=== PATIENT | female | born 1955 | race African-American/Black ===

== ENCOUNTER 2020-03-18 12:03 | Emergency (ER) | payer MEDICAID, MEDICARE ==
[~2020-03-18] VITALS: Ht 154.9 cm; Wt 70.0 kg
[2020-03-18 12:10] VITALS: BP 156/86
== END 2020-03-18 14:40 | disposition left against medical advice (07) ==
LOC: ER 12:03
DX: Z53.21 Procedure and treatment not carried out due to patient leaving prior to being seen by health care provider (principal); I10 Essential (primary) hypertension; M32.9 Systemic lupus erythematosus, unspecified; Z86.73 Personal history of transient ischemic attack (TIA), and cerebral infarction without residual deficits
CPT/HCPCS: 93005

== ENCOUNTER 2020-07-11 20:21 | Emergency (ER) | payer MEDICARE ==
[~2020-07-11] VITALS: Ht 154.9 cm; Wt 61.0 kg
[2020-07-11] MEDS ORDERED: KETOROLAC 60MG/2ML VIAL IM ONE (21:15)
[2020-07-11] MEDS ORDERED: HYDR-4346 MT (22:11)
[2020-07-11 22:15] VITALS: BP 102/74
== END 2020-07-11 22:41 | disposition home or self-care (01) ==
LOC: ER 20:21
DX: M79.605 Pain in left leg (principal); M19.90 Unspecified osteoarthritis, unspecified site; I10 Essential (primary) hypertension; Z86.73 Personal history of transient ischemic attack (TIA), and cerebral infarction without residual deficits; Z98.890 Other specified postprocedural states
CPT/HCPCS: 96372; 99283; J1885

== ENCOUNTER → 2021-09-09 | Outpatient (CLI) | payer MEDICARE, OTHER ==
[~2021-09-09] MED LIST: HYDR-4346 MT
[2021-09-09 12:29] LABS: CHLORIDE 111 mEq/L (98-107)
== END | disposition home or self-care (01) ==
LOC: LAB 11:45
PROVIDERS: ATTEND Psychiatry & Neurology Neurology
DX: M79.609 Pain in unspecified limb (principal)
CPT/HCPCS: 36415; 80053

== ENCOUNTER → 2022-02-16 | Outpatient (CLI) | payer MEDICARE, OTHER ==
[2022-02-18 09:10] LABS: ANTI-NUCLEAR ANTIBODIES DIRECT Positive (Negative)
[2022-02-19 13:06] LABS: ANTI-MYELOPEROXIDASE AB < 0.2 units (0.0-0.9); ANTI-PROTEINASE 3 ABS < 0.2 units (0.0-0.9)
[2022-02-21 13:08] LABS: ATYPICAL P-ANCA <1:20 titer (Neg:<1:20); CYTOPLASMIC C-ANCA <1:20 titer (Neg:<1:20); PERINUCLEAR P-ANCA <1:20 titer (Neg:<1:20)
== END | disposition home or self-care (01) ==
LOC: LAB 10:00
PROVIDERS: ATTEND Specialist
DX: M32.9 Systemic lupus erythematosus, unspecified (principal)
CPT/HCPCS: 83520; 86038; 86160; 86162; 86256

== ENCOUNTER → 2023-03-30 | Outpatient (CLI) | payer MEDICARE, OTHER | END | disposition home or self-care (01) | LOC: NM 09:40 | PROVIDERS: ATTEND Internal Medicine | DX: E04.8 Other specified nontoxic goiter (principal) | CPT/HCPCS: 78014; A9516 ==

== ENCOUNTER 2024-03-15 16:09 | Inpatient (IN) | payer MEDICARE, MEDICAID ==
[~2024-03-15] VITALS: Ht 165.1 cm; Wt 50.8 kg
[~2024-03-15 16:09] MED LIST changes: +AMIN30LI2 PO; +AMLO5TAB88 MT; +ASCO500C18 MT; +ASPI-1406 MT; +ATOR40TA70 MT; +CARV12.545 MT; +CLON0.1T PO; +COLL30OI TP; +DOCU-150 MT; +FAMO20TA8 MT; +FURO-151 MT; -HYDR-4346 MT; +HYDR50TA40 MT; +LACT10SO81 MT; +MAG355OR21 MT; +MELA1TAB28 MT; +TOPUD PO; +ZINC113C10 TP
[2024-03-15] MEDS: CEFTRIAXONE 1GM/50ML 50 ML IV ONE (17:00)
[2024-03-15 17:14] LABS: HEMATOCRIT. 22.4 % (36.0-48.0); HEMOGLOBIN. 7.4 g/dL (12.0-16.0); MEAN CORPUSCULAR HEMOGLOBIN 30.9 pg (28.0-32.0); MEAN CORPUSCULAR HGB CONC 33.1 g/dL (31.0-37.0); MEAN CORPUSCULAR VOLUME 93.5 fL (81.0-99.0); MEAN PLATELET VOLUME 8.6 fl (7.4-10.4); PLATELET 209 x1000/uL (130-400); RED CELL DISTRIBUTION WIDTH 16.6 % (11.6-14.6); WHITE BLOOD COUNT 4.3 x1000/uL (4.5-11.0)
[2024-03-15 17:22] LABS: DIFFERENTIAL COMMENT 1
[2024-03-15 17:23] LABS: PROTHROMBIN TIME 11.1 sec (9.6-11.0)
[2024-03-15 17:28] LABS: CHLORIDE 111 mEq/L (98-107); POTASSIUM 4.9 mEq/L (3.5-5.1); SODIUM 139 mEq/L (136-145)
[2024-03-15 17:29] LABS: CALCIUM 8.6 mg/dL (8.7-10.4); CARBON DIOXIDE 18 mEq/L (21-32)
[2024-03-15 17:34] LABS: CREATININE 3.3 mg/dL (0.6-1.0); GLUCOSE 108 mg/dL (70-105); UREA NITROGEN BLOOD 86 mg/dL (9-23)
[2024-03-15 17:40] LABS: TROPONIN I HIGH SENSITIVITY 47 ng/L (3.0-34)
[2024-03-15 19:00] LABS: ANISOCYTOSIS 1+; PLATELET ESTIMATE NORMAL
[2024-03-15] MEDS ORDERED: NITROGLYCERIN 0.4MG TABLET SL SL PRN (19:30)
[2024-03-15] MEDS ORDERED: ONDANSETRON HCL 4MG/2ML INJ IV PRN (19:30)
[2024-03-15] MEDS ORDERED: DOCUSATE SODIUM 100MG CAPSULE PO PRN (19:30)
[2024-03-15] MEDS ORDERED: ACETAMINOPHEN 325MG TABLET PO PRN (19:30)
[2024-03-15] MEDS ORDERED: GUAIFENESIN 200MG/10ML SUGAR FREE UDC PO PRN (19:30)
[2024-03-15] MEDS ORDERED: IPRATROPIUM/ALBUTEROL 0.5-3(2.5)MG/3ML NEB NEB PRN (19:30)
[2024-03-15] MEDS: EPOETIN ALFA-EPBX 10,000 UNIT/ML VIAL SUBCUT NR (21:00)
[2024-03-15] MEDS: CITRIC ACID/SODIUM CITRATE SOLN 30ML UDC PO SCH (21:00)
[2024-03-15] MEDS: FAMOTIDINE 20MG TABLET PO SCH (21:29)
[2024-03-16] VITALS (11 sets, daily range): BP systolic 105–167; BP diastolic 55–84; PULSE 66–96; RESP 17–20; TEMP 36.3918–37.00296; O2SAT 95–100
[2024-03-16] MEDS: CARVEDILOL 3.125 MG TABLET PO SCH (06:44)
[2024-03-16 07:54] LABS: CHLORIDE 114 mEq/L (98-107); POTASSIUM 4.8 mEq/L (3.5-5.1); SODIUM 143 mEq/L (136-145)
[2024-03-16 07:57] LABS: CALCIUM 8.4 mg/dL (8.7-10.4); CARBON DIOXIDE 17 mEq/L (21-32)
[2024-03-16 08:02] LABS: CREATININE 3.6 mg/dL (0.6-1.0); GLUCOSE 80 mg/dL (70-105); UREA NITROGEN BLOOD 95 mg/dL (9-23)
[2024-03-16 08:04] LABS: ALANINE AMINOTRANSFERASE 8 IU/L (10-49); ALBUMIN 3.3 g/dL (3.2-4.8); ASPARTATE AMINOTRANSFERASE 19 IU/L (<34); PHOSPHORUS 5.8 mg/dL (2.5-4.9)
[2024-03-16 08:05] LABS: BILIRUBIN TOTAL 0.2 mg/dL (0.1-1.0)
[2024-03-16 08:13] LABS: MEAN CORPUSCULAR HEMOGLOBIN 30.7 pg (28.0-32.0); MEAN CORPUSCULAR HGB CONC 33.2 g/dL (31.0-37.0); MEAN CORPUSCULAR VOLUME 92.5 fL (81.0-99.0); MEAN PLATELET VOLUME 9.2 fl (7.4-10.4); PLATELET 197 x1000/uL (130-400); RED BLOOD CELL COUNT 2.15 mill/uL (4.2-5.4); RED CELL DISTRIBUTION WIDTH 16.3 % (11.6-14.6); WHITE BLOOD COUNT 5.5 x1000/uL (4.5-11.0)
[2024-03-16 08:28] LABS: DIFFERENTIAL COMMENT 1
[2024-03-16 08:30] LABS: HEMATOCRIT. 19.9 % (36.0-48.0); HEMOGLOBIN. 6.6 g/dL (12.0-16.0)
[2024-03-16] MEDS ORDERED: FUROSEMIDE 20MG TABLET PO SCH (09:00)
[2024-03-16] MEDS: ACETAMINOPHEN 325MG TABLET PO PRN (09:00)
[2024-03-16] MEDS: FUROSEMIDE 40MG/4ML VIAL IVP SCH (10:22)
[2024-03-16] MEDS: ASPIRIN 81MG EC TABLET PO SCH (10:23)
[2024-03-16] MEDS: MAGNESIUM/ALUMINUM HYDROXIDE/SIMETHICONE 30ML UDC PO PRN (20:30)
[2024-03-16] MEDS: CLONIDINE 0.1MG TABLET PO PRN (20:30)
[2024-03-17 00:16] LABS: ANISOCYTOSIS 1+; PLATELET ESTIMATE NORMAL
[2024-03-17 00:33] VITALS: BP 148/60; PULSE 75; RESP 18; TEMP 36.50292; O2SAT 98
[2024-03-17 04:00] VITALS: BP 137/60; PULSE 82; RESP 18; TEMP 36.55848; O2SAT 99
[2024-03-17 08:00] VITALS: BP 155/56; PULSE 75; RESP 18; TEMP 36.72516; O2SAT 100
[2024-03-17 11:32] LABS: HEMATOCRIT 23.7 % (36.0-48.0)
[2024-03-17 11:33] LABS: HEMOGLOBIN 7.7 g/dL (12.0-16.0)
[2024-03-17 12:00] VITALS: BP 169/79; PULSE 71; RESP 20; TEMP 36.72516; O2SAT 98
[2024-03-17 16:00] VITALS: BP 173/68; PULSE 79; RESP 18; TEMP 36.50292; O2SAT 99
[2024-03-17 20:00] VITALS: BP 163/68; PULSE 65; RESP 18; TEMP 36.50292; O2SAT 96
[2024-03-18 04:00] VITALS: BP 169/73; PULSE 75; RESP 17; TEMP 36.3918; O2SAT 99
[2024-03-18 08:00] VITALS: BP 117/87; PULSE 74; RESP 18; TEMP 35.89176; O2SAT 98
[2024-03-18 12:00] VITALS: BP 180/82; PULSE 73; RESP 18; TEMP 36.33624; O2SAT 96
[2024-03-18 12:36] LABS: CLARITY URINE CLEAR (CLEAR); COLOR URINE YELLOW (YELLOW); GLUCOSE URINE NEGATIVE (NEGATIVE); KETONES URINE NEGATIVE (NEGATIVE); LEUKOCYTE ESTERASE URINE 2+ (NEGATIVE); NITRITE URINE NEGATIVE (NEGATIVE); OCCULT BLOOD URINE NEGATIVE (NEGATIVE); PROTEIN URINE 2+ (NEGATIVE); UROBILINOGEN URINE 0.2 E.U./dL (0.2-1.0)
[2024-03-18 13:36] LABS: BACTERIA URINE TRACE; RBC URINE 0-2 /hpf (0-2); SQUAMOUS EPITHELIAL CELL URINE 1+ /lpf (RARE/1+); WBC URINE 15-25 /hpf (0-2); YEAST URINE NONE SEEN
[2024-03-18 16:00] VITALS: BP 174/64; PULSE 82; RESP 18; TEMP 37.00296; O2SAT 93
[2024-03-18] MEDS: MEROPENEM 1G/100ML 100 ML IV SCH (18:44)
[2024-03-18 20:00] VITALS: BP 106/67; PULSE 80; RESP 20; TEMP 36.55848; O2SAT 99
[2024-03-18] MEDS: EPOETIN ALFA-EPBX 10,000 UNIT/ML VIAL SUBCUT NR (21:36)
[2024-03-19] VITALS: BP 118/70; PULSE 78; RESP 20; TEMP 36.114; O2SAT 98
[2024-03-19 04:00] VITALS: BP 148/66; PULSE 92; RESP 18; TEMP 36.55848; O2SAT 96
[2024-03-19 06:47] LABS: HEMATOCRIT. 25.5 % (36.0-48.0); HEMOGLOBIN. 8.2 g/dL (12.0-16.0); MEAN CORPUSCULAR HEMOGLOBIN 30.1 pg (28.0-32.0); MEAN CORPUSCULAR HGB CONC 32.2 g/dL (31.0-37.0); MEAN CORPUSCULAR VOLUME 93.4 fL (81.0-99.0); MEAN PLATELET VOLUME 9.6 fl (7.4-10.4); PLATELET 198 x1000/uL (130-400); RED BLOOD CELL COUNT 2.73 mill/uL (4.2-5.4); RED CELL DISTRIBUTION WIDTH 16.5 % (11.6-14.6); WHITE BLOOD COUNT 4.9 x1000/uL (4.5-11.0)
[2024-03-19 06:56] LABS: DIFFERENTIAL COMMENT 1
[2024-03-19 08:00] VITALS: BP 160/80; PULSE 75; RESP 18; TEMP 36.44736; O2SAT 98
[2024-03-19 12:00] VITALS: BP 180/83; PULSE 76; RESP 20; TEMP 36.78072; O2SAT 100
[2024-03-19 16:00] VITALS: BP 180/75; PULSE 77; RESP 22; TEMP 36.114; O2SAT 96
[2024-03-19 20:00] VITALS: BP 152/69; PULSE 70; RESP 20; TEMP 36.16956; O2SAT 96
[2024-03-19] MEDS: ZOLPIDEM TARTRATE 5MG TABLET PO PRN (21:59)
[2024-03-19 22:35] LABS: PLATELET ESTIMATE NORMAL
[2024-03-20] VITALS (7 sets, daily range): BP systolic 149–194; BP diastolic 60–87; PULSE 71–79; RESP 18–20; TEMP 36.50292–36.89184; O2SAT 82–99
== END 2024-03-20 17:08 | DRG 291 ==
LOC: ER 16:09 → EDBEDREQ 19:42 → EDBEDREQTM 19:42 → 5WST 23:18 → 8WST 03-16 15:39
PROVIDERS: ADMIT Internal Medicine; ATTEND Internal Medicine
PROC: 30233N1 Transfusion of Nonautologous Red Blood Cells into Peripheral Vein, Percutaneous Approach (ICD-10-PCS; principal; 2024-03-16)
DX: I13.0 Hypertensive heart and chronic kidney disease with heart failure and stage 1 through stage 4 chronic kidney disease, or unspecified chronic kidney disease (principal); N17.0 Acute kidney failure with tubular necrosis; D63.1 Anemia in chronic kidney disease; E11.22 Type 2 diabetes mellitus with diabetic chronic kidney disease; J44.9 Chronic obstructive pulmonary disease, unspecified; N18.9 Chronic kidney disease, unspecified; I50.9 Heart failure, unspecified; Z86.73 Personal history of transient ischemic attack (TIA), and cerebral infarction without residual deficits; Z79.899 Other long term (current) drug therapy
CPT/HCPCS: 36415; 71045; 80048; 80053; 81003; 83735; 83880; 84100; 84145; 84484; 85014; 85018; 85025; 86850; 86900; 86920; 87077; 87186; 93970; 99285; J0696; J0885; J1940; J2185; P9016

== ENCOUNTER 2024-04-15 05:04 | Inpatient (IN) | payer MEDICARE, MEDICAID ==
[~2024-04-15] VITALS: Ht 162.6 cm; Wt 61.7 kg
[2024-04-15] VITALS (16 sets, daily range): BP systolic 139–174; BP diastolic 61–91; PULSE 75–88; RESP 16–27; TEMP 36.50292–36.6696; O2SAT 94–100
[~2024-04-15 05:04] MED LIST changes: -DOCU-150 MT; +DOCU-422 MT
[2024-04-15 05:28] LABS: BG BASE EXCESS -8.5 mmol/L (-2.0-3.0); BG CARBOXYHEMOGLOBIN 0.4 % (0.5-1.5); BG DEOXYHEMOGLOBIN 0.3 % (0.0-5.0); BG FRACTION INSPIRED OXYGEN 100; BG HCO3 ACT 18.3 mmol/L (21.0-28.0); BG METHEMOGLOBIN 0.1 % (0.5-1.5); BG OXYGEN SATURATION 99.7 % (94.0-98.0); BG OXYHEMOGLOBIN 99.2 % (94.0-98.0); BG PCO2 43.1 mmHg (32.0-45.0); BG PH 7.246 (7.350-7.450); BG PO2 439.3 mmHg (83.0-108.0); BG SAMPLE SITE LEFT RADIAL; BG TOTAL HEMOGLOBIN 9.4 g/dL (12.0-16.0); BG VENT MODE MASK - BIPAP
[2024-04-15 05:28] LABS: BASOPHILS % 0.8 % (0.0-2.0); EOSINOPHILS % 2.5 % (0.0-5.0); HEMATOCRIT. 29.6 % (36.0-48.0); HEMOGLOBIN. 9.6 g/dL (12.0-16.0); LYMPHOCYTES % 53.4 % (20.0-50.0); MEAN CORPUSCULAR HEMOGLOBIN 30.7 pg (28.0-32.0); MEAN CORPUSCULAR HGB CONC 32.4 g/dL (31.0-37.0); MEAN CORPUSCULAR VOLUME 94.5 fL (81.0-99.0); MEAN PLATELET VOLUME 8.9 fl (7.4-10.4); MONOCYTES % 11.3 % (2.0-8.0); PLATELET 220 x1000/uL (130-400); RED BLOOD CELL COUNT 3.13 mill/uL (4.2-5.4); RED CELL DISTRIBUTION WIDTH 14.9 % (11.6-14.6); WHITE BLOOD COUNT 6.7 x1000/uL (4.5-11.0)
[2024-04-15] MEDS ORDERED: ENALAPRIL 2.5MG/2ML VIAL 2ML IV ONE (05:30)
[2024-04-15 05:37] LABS: PROTHROMBIN TIME 11.4 sec (9.6-11.0)
[2024-04-15] MEDS: PIPERACILLIN/TAZO 3.375G/50ML 50 ML IV ONE (05:40)
[2024-04-15] MEDS: SODIUM CHLORIDE 0.9% 250 ML IV ONE (05:41)
[2024-04-15 05:45] LABS: CARBON DIOXIDE 20 mEq/L (21-32); CHLORIDE 113 mEq/L (98-107); POTASSIUM 4.5 mEq/L (3.5-5.1); SODIUM 142 mEq/L (136-145)
[2024-04-15 05:51] LABS: CREATININE 2.8 mg/dL (0.6-1.0); GLUCOSE 156 mg/dL (70-105); UREA NITROGEN BLOOD 68 mg/dL (9-23)
[2024-04-15 05:53] LABS: ALANINE AMINOTRANSFERASE 16 IU/L (10-49); ALBUMIN 3.7 g/dL (3.2-4.8); ASPARTATE AMINOTRANSFERASE 31 IU/L (<34); BILIRUBIN TOTAL 0.2 mg/dL (0.1-1.0); PROTEIN TOTAL 7.9 g/dL (6.0-8.3)
[2024-04-15] MEDS: ENALAPRIL 1.25MG/ML VIAL 1ML IV NR (06:10)
[2024-04-15] MEDS: FUROSEMIDE 100MG/10ML VIAL IVP ONE (06:10)
[2024-04-15] MEDS: IPRATROPIUM BROMIDE (0.02%) 0.5MG/2.5ML NEB HHN STA (06:11)
[2024-04-15] MEDS: VANCOMYCIN 1G PREMIX 200 ML IV ONE (06:12)
[2024-04-15] MEDS: ALBUTEROL (0.083%) 2.5MG/3ML NEB HHN STA (06:13)
[2024-04-15 06:28] LABS: BILIRUBIN DIRECT < 0.1 mg/dL (<=3.0)
[2024-04-15 06:31] LABS: TROPONIN I HIGH SENSITIVITY 73 ng/L (3.0-34)
[2024-04-15 06:40] LABS: BG BASE EXCESS -8.6 mmol/L (-2.0-3.0); BG CARBOXYHEMOGLOBIN 0.4 % (0.5-1.5); BG DEOXYHEMOGLOBIN 0.5 % (0.0-5.0); BG FRACTION INSPIRED OXYGEN 50; BG HCO3 ACT 17.2 mmol/L (21.0-28.0); BG METHEMOGLOBIN 0.3 % (0.5-1.5); BG OXYGEN SATURATION 99.5 % (94.0-98.0); BG OXYHEMOGLOBIN 98.8 % (94.0-98.0); BG PCO2 36.7 mmHg (32.0-45.0); BG PH 7.289 (7.350-7.450); BG PO2 341.4 mmHg (83.0-108.0); BG SAMPLE SITE LEFT RADIAL; BG TOTAL HEMOGLOBIN 10.7 g/dL (12.0-16.0)
[2024-04-15] MEDS ORDERED: IPRATROPIUM/ALBUTEROL 0.5-3(2.5)MG/3ML NEB HHN PRN (07:30)
[2024-04-15] MEDS ORDERED: ACETAMINOPHEN 325MG TABLET PO PRN ×2 (07:30)
[2024-04-15] MEDS ORDERED: DOCUSATE SODIUM 100MG CAPSULE PO PRN (07:30)
[2024-04-15] MEDS ORDERED: ONDANSETRON HCL 4MG/2ML INJ IV PRN (07:30)
[2024-04-15] MEDS ORDERED: GUAIFENESIN 200MG/10ML SUGAR FREE UDC PO PRN (07:30)
[2024-04-15] MEDS: FUROSEMIDE 40MG/4ML VIAL IV SCH (09:19)
[2024-04-15] MEDS: ASPIRIN 81MG EC TABLET PO SCH (09:19)
[2024-04-15] MEDS: HYDRALAZINE HCL 50MG TABLET PO SCH (09:19)
[2024-04-15] MEDS: SODIUM CHLORIDE 0.9% 1,000 ML IV SCH (09:19)
[2024-04-15] MEDS: IPRATROPIUM/ALBUTEROL 0.5-3(2.5)MG/3ML NEB HHN SCH (09:33)
[2024-04-15 14:40] LABS: IRON 61 ug/dL (50-170)
[2024-04-15 14:43] LABS: CREATINE KINASE 93 IU/L (34-145); TOTAL IRON BINDING CAPACITY 231 ug/dl (250-425)
[2024-04-15 14:46] LABS: FERRITIN 243 ng/mL (10-291); FOLIC ACID (FOLATE) SERUM 14.65 ng/mL (>5.38); VITAMIN B12 SERUM 780 pg/mL (211-911)
[2024-04-15] MEDS: MEROPENEM 500MG/50ML IV SCH (15:35)
[2024-04-15] MEDS ORDERED: PIPERACILLIN/TAZO 3.375G/50ML 50 ML IV SCH (18:00)
[2024-04-15] MEDS: CLONIDINE 0.1MG TABLET PO PRN (19:02)
[2024-04-15] MEDS: ATORVASTATIN CALCIUM 40MG TABLET PO SCH (20:44)
[2024-04-16] VITALS (18 sets, daily range): BP systolic 123–168; BP diastolic 65–78; PULSE 71–99; RESP 12–22; TEMP 36.22512–36.78072; O2SAT 95–100
[2024-04-16 09:27] LABS: HEMATOCRIT. 28.3 % (36.0-48.0); HEMOGLOBIN. 9.2 g/dL (12.0-16.0); MEAN CORPUSCULAR HEMOGLOBIN 30.6 pg (28.0-32.0); MEAN CORPUSCULAR HGB CONC 32.6 g/dL (31.0-37.0); MEAN CORPUSCULAR VOLUME 93.8 fL (81.0-99.0); MEAN PLATELET VOLUME 9.7 fl (7.4-10.4); PLATELET 172 x1000/uL (130-400); RED BLOOD CELL COUNT 3.02 mill/uL (4.2-5.4); RED CELL DISTRIBUTION WIDTH 14.4 % (11.6-14.6); WHITE BLOOD COUNT 5.4 x1000/uL (4.5-11.0)
[2024-04-16 09:29] LABS: POTASSIUM 4.8 mEq/L (3.5-5.1)
[2024-04-16 09:30] LABS: CALCIUM 8.7 mg/dL (8.7-10.4)
[2024-04-16 09:32] LABS: DIFFERENTIAL COMMENT 1
[2024-04-16 09:35] LABS: CREATININE 3.2 mg/dL (0.6-1.0)
[2024-04-16 09:39] LABS: T4 FREE 1.07 ng/dL (0.89-1.76); THYROID STIMULATING HORMONE 1.14 uIU/mL (0.55-4.78)
[2024-04-16 10:14] LABS: TROPONIN I HIGH SENSITIVITY 61 ng/L (3.0-34)
[2024-04-16 14:54] LABS: CLARITY URINE CLEAR (CLEAR); COLOR URINE YELLOW (YELLOW); GLUCOSE URINE NEGATIVE (NEGATIVE); KETONES URINE NEGATIVE (NEGATIVE); LEUKOCYTE ESTERASE URINE TRACE (NEGATIVE); NITRITE URINE NEGATIVE (NEGATIVE); OCCULT BLOOD URINE NEGATIVE (NEGATIVE); PH URINE 5.5 (4.5-8.0); PROTEIN URINE 3+ (NEGATIVE); SPECIFIC GRAVITY URINE 1.012 (1.005-1.030); UROBILINOGEN URINE 0.2 E.U./dL (0.2-1.0)
[2024-04-16 16:27] LABS: ANISOCYTOSIS 1+; PLATELET ESTIMATE NORMAL
[2024-04-16 17:40] LABS: BACTERIA URINE TRACE; RBC URINE 0-2 /hpf (0-2); SQUAMOUS EPITHELIAL CELL URINE 1+ /lpf (RARE/1+); WBC URINE 0-2 /hpf (0-2)
[2024-04-16] MEDS: SODIUM CHLORIDE 0.45% 1,000 ML IV SCH (18:14)
[2024-04-16] MEDS: VANCOMYCIN 750MG/150ML (BAXTER) IV SCH (18:14)
[2024-04-16] MEDS: DIPHENHYDRAMINE 25MG CAPSULE PO NR (21:34)
[2024-04-16] MEDS: DIPHENHYDRAMINE HCL/ZINC ACET 28 GM CREAM TOP NR (22:30)
[2024-04-17] VITALS (11 sets, daily range): BP systolic 124–164; BP diastolic 60–73; PULSE 74–99; RESP 13–26; TEMP 36.114–37.05852; O2SAT 94–100
[2024-04-17 05:21] LABS: HEMATOCRIT. 26.2 % (36.0-48.0); HEMOGLOBIN. 8.2 g/dL (12.0-16.0); MEAN CORPUSCULAR HEMOGLOBIN 29.4 pg (28.0-32.0); MEAN CORPUSCULAR HGB CONC 31.3 g/dL (31.0-37.0); MEAN CORPUSCULAR VOLUME 93.9 fL (81.0-99.0); MEAN PLATELET VOLUME 9.1 fl (7.4-10.4); PLATELET 165 x1000/uL (130-400); POTASSIUM 4.8 mEq/L (3.5-5.1); RED BLOOD CELL COUNT 2.79 mill/uL (4.2-5.4); RED CELL DISTRIBUTION WIDTH 14.9 % (11.6-14.6); WHITE BLOOD COUNT 5.3 x1000/uL (4.5-11.0)
[2024-04-17 05:22] LABS: CALCIUM 8.6 mg/dL (8.7-10.4)
[2024-04-17 05:27] LABS: CREATININE 3.2 mg/dL (0.6-1.0)
[2024-04-17 05:29] LABS: DIFFERENTIAL COMMENT 1
[2024-04-17] MEDS: ENOXAPARIN 30MG/0.3ML SYR SUBCUT SCH (09:00)
[2024-04-17] MEDS: SODIUM BICARBONATE 650MG TABLET PO SCH (14:02)
[2024-04-17 15:44] LABS: PLATELET ESTIMATE NORMAL
== END 2024-04-17 17:45 | DRG 871 ==
LOC: ER 05:04 → 5EST 06:23
PROVIDERS: ADMIT Hospitalist; ATTEND Hospitalist
PROC: 5A09357 Assistance with Respiratory Ventilation, Less than 24 Consecutive Hours, Continuous Positive Airway Pressure (ICD-10-PCS; principal; 2024-04-15)
DX: A41.9 Sepsis, unspecified organism (principal); I50.33 Acute on chronic diastolic (congestive) heart failure; J96.01 Acute respiratory failure with hypoxia; I13.0 Hypertensive heart and chronic kidney disease with heart failure and stage 1 through stage 4 chronic kidney disease, or unspecified chronic kidney disease; J44.1 Chronic obstructive pulmonary disease with (acute) exacerbation; N17.9 Acute kidney failure, unspecified; I69.354 Hemiplegia and hemiparesis following cerebral infarction affecting left non-dominant side; N39.0 Urinary tract infection, site not specified; Z20.822 Contact with and (suspected) exposure to COVID-19; K21.9 Gastro-esophageal reflux disease without esophagitis; E11.65 Type 2 diabetes mellitus with hyperglycemia; E11.22 Type 2 diabetes mellitus with diabetic chronic kidney disease; N18.30 Chronic kidney disease, stage 3 unspecified; E78.00 Pure hypercholesterolemia, unspecified; D64.9 Anemia, unspecified; M32.9 Systemic lupus erythematosus, unspecified; Z79.82 Long term (current) use of aspirin; Z87.891 Personal history of nicotine dependence; Z79.4 Long term (current) use of insulin; Z99.81 Dependence on supplemental oxygen; Z99.3 Dependence on wheelchair; Z86.19 Personal history of other infectious and parasitic diseases
CPT/HCPCS: 36415; 36600; 71045; 76770; 80048; 80061; 80076; 80202; 81003; 82375; 82550; 82607; 82728; 82746; 82805; 83036; 83540; 83550; 83605; 83880; 84145; 84439; 84443; 84484; 85025; 87426; 87804; 93005; 93306; 93970; 94640; 94660; 97110; 97162; 97166; 97530; 99291; A6261; C1893; J1650; J1940; J2185; J2543; J3370; J3490; J7050; Q0163

== ENCOUNTER 2024-06-07 20:48 | Inpatient (IN) | payer MEDICARE, MEDICAID ==
[~2024-06-07] VITALS: Ht 160 cm; Wt 57.2 kg
[~2024-06-07 20:48] MED LIST changes: -AMIN30LI2 PO; -CARV12.545 MT; -COLL30OI TP; -FURO-151 MT; -LACT10SO81 MT; -MAG355OR21 MT; -MELA1TAB28 MT; -TOPUD PO
[2024-06-07] MEDS ORDERED: AZITHROMYCIN 500MG/250ML 250 ML IV SCH (21:00)
[2024-06-07 21:18] LABS: BASOPHILS % 1.3 % (0.0-2.0); EOSINOPHILS % 9.4 % (0.0-5.0); HEMATOCRIT. 23.3 % (36.0-48.0); HEMOGLOBIN. 7.7 g/dL (12.0-16.0); LYMPHOCYTES % 31.4 % (20.0-50.0); MEAN CORPUSCULAR HEMOGLOBIN 31.8 pg (28.0-32.0); MEAN CORPUSCULAR HGB CONC 33.1 g/dL (31.0-37.0); MEAN PLATELET VOLUME 9.7 fl (7.4-10.4); MONOCYTES % 12.5 % (2.0-8.0); NEUTROPHILS % 45.4 % (40.0-76.0); PLATELET 305 x1000/uL (130-400); RED BLOOD CELL COUNT 2.43 mill/uL (4.2-5.4); RED CELL DISTRIBUTION WIDTH 15.2 % (11.6-14.6); WHITE BLOOD COUNT 7.6 x1000/uL (4.5-11.0)
[2024-06-07 21:26] LABS: CHLORIDE 113 mEq/L (98-107); SODIUM 141 mEq/L (136-145)
[2024-06-07 21:27] LABS: CALCIUM 8.6 mg/dL (8.7-10.4); CARBON DIOXIDE 19 mEq/L (21-32)
[2024-06-07 21:32] LABS: CREATININE 4.1 mg/dL (0.6-1.0); GLUCOSE 153 mg/dL (70-105); UREA NITROGEN BLOOD 85 mg/dL (9-23)
[2024-06-07 21:33] LABS: DIFFERENTIAL COMMENT 1
[2024-06-07] MEDS: METHYLPREDNISOLONE SOD SUCC 125MG/2ML (ACT-O-VIAL) IV STA (21:39)
[2024-06-07] MEDS: FUROSEMIDE 40MG/4ML VIAL IV ONE (21:39)
[2024-06-07] MEDS: ALBUTEROL (0.083%) 2.5MG/3ML NEB HHN STA (21:41)
[2024-06-07] MEDS: IPRATROPIUM BROMIDE (0.02%) 0.5MG/2.5ML NEB HHN STA (21:41)
[2024-06-07 21:56] LABS: POTASSIUM 6.2 mEq/L (3.5-5.1)
[2024-06-07 21:57] LABS: TROPONIN I HIGH SENSITIVITY 62 ng/L (3.0-34)
[2024-06-07] MEDS: AZITHROMYCIN 500MG/250ML 250 ML IV NR (22:22)
[2024-06-08] MEDS: CALCIUM CHLORIDE 1,000 MG in DEXT 5% WATER 100 ML IV ONE (00:59)
[2024-06-08] MEDS: INSULIN REGULAR (HUMULIN R) 1000UNITS/10ML VIAL IV ONE (01:00)
[2024-06-08] MEDS: DEXTROSE 50% WATER 50ML SYRINGE IV ONE (01:00)
[2024-06-08] MEDS ORDERED: MAGNESIUM/ALUMINUM HYDROXIDE/SIMETHICONE 30ML UDC PO PRN (02:00)
[2024-06-08] MEDS ORDERED: ONDANSETRON HCL 4MG/2ML INJ IV PRN (02:00)
[2024-06-08] MEDS ORDERED: DOCUSATE SODIUM 100MG CAPSULE PO PRN (02:00)
[2024-06-08] MEDS ORDERED: ACETAMINOPHEN 325MG TABLET PO PRN (02:00)
[2024-06-08] MEDS ORDERED: IPRATROPIUM/ALBUTEROL 0.5-3(2.5)MG/3ML NEB HHN PRN (02:00)
[2024-06-08 05:00] VITALS: BP 171/72; PULSE 84; RESP 17; TEMP 37.1964
[2024-06-08] MEDS: HYDRALAZINE 20MG/ML VIAL IV PRN (07:03)
[2024-06-08] MEDS: METHYLPREDNISOLONE SOD SUCC 125MG/2ML (ACT-O-VIAL) IV SCH (07:04)
[2024-06-08] MEDS: PANTOPRAZOLE SODIUM 40 MG/VIAL IV SCH (07:04)
[2024-06-08 08:00] VITALS: BP 196/81; PULSE 75; RESP 19; O2SAT 99
[2024-06-08] MEDS: FUROSEMIDE 40MG/4ML VIAL IVP NR (08:30)
[2024-06-08] MEDS: ASPIRIN 81MG TABLET PO SCH (08:59)
[2024-06-08] MEDS: AMLODIPINE 5MG TABLET PO SCH (09:00)
[2024-06-08 10:00] LABS: CHLORIDE 112 mEq/L (98-107); SODIUM 140 mEq/L (136-145)
[2024-06-08 10:03] LABS: CALCIUM 9.2 mg/dL (8.7-10.4); CARBON DIOXIDE 17 mEq/L (21-32)
[2024-06-08 10:05] LABS: CREATINE KINASE MB FRACTION 3.3 ng/mL (0.5-3.6)
[2024-06-08 10:08] LABS: CREATININE 4.2 mg/dL (0.6-1.0); GLUCOSE 219 mg/dL (70-105); UREA NITROGEN BLOOD 88 mg/dL (9-23)
[2024-06-08 10:09] LABS: ALANINE AMINOTRANSFERASE < 7 IU/L (10-49)
[2024-06-08 10:10] LABS: ALBUMIN 3.5 g/dL (3.2-4.8); ASPARTATE AMINOTRANSFERASE 28 IU/L (<34); BILIRUBIN TOTAL < 0.2 mg/dL (0.1-1.0); CREATINE KINASE 79 IU/L (34-145); PHOSPHORUS 4.6 mg/dL (2.5-4.9)
[2024-06-08 10:11] LABS: PROTEIN TOTAL 7.7 g/dL (6.0-8.3)
[2024-06-08 11:05] LABS: TROPONIN I HIGH SENSITIVITY 67 ng/L (3.0-34)
[2024-06-08 11:06] LABS: POTASSIUM 6.3 mEq/L (3.5-5.1)
[2024-06-08 12:00] VITALS: BP 156/63; PULSE 76; RESP 18; O2SAT 96
[2024-06-08] MEDS: SODIUM ZIRCONIUM CYCLOSILICATE 10GM/PACKET PO NR ×2 (13:42→20:00)
[2024-06-08] MEDS: METHYLPREDNISOLONE SOD SUCC 40MG/ML (ACT-O-VIAL) IV SCH (13:56)
[2024-06-08] MEDS: DEXTROSE 50% WATER 50ML SYRINGE IV NR (13:56)
[2024-06-08] MEDS: SODIUM BICARBONATE 8.4% 50MEQ/50ML SYR IV NR (13:57)
[2024-06-08] MEDS: INSULIN REGULAR (HUMULIN R) 1000UNITS/10ML VIAL IV NR (14:02)
[2024-06-08] MEDS: CALCIUM GLUCONATE 1GM PREMIX 50 ML IV NR (14:03)
[2024-06-08] MEDS ORDERED: SODIUM POLYSTYRENE SULFONATE 15 G/60 ML BOT PO ONE (14:30)
[2024-06-08] MEDS ORDERED: DEXTROSE 50% WATER 50ML SYRINGE IV ONE (14:30)
[2024-06-08] MEDS ORDERED: INSULIN REGULAR (HUMULIN R) 1000UNITS/10ML VIAL IV ONE (14:30)
[2024-06-08] MEDS ORDERED: CALCIUM CHLORIDE 1GM/10ML SYR IV ONE (14:30)
[2024-06-08] MEDS ORDERED: SODIUM BICARBONATE 8.4% 50MEQ/50ML SYR IV ONE (14:30)
[2024-06-08 14:58] VITALS: PULSE 77; RESP 18
[2024-06-08] MEDS: IPRATROPIUM/ALBUTEROL 0.5-3(2.5)MG/3ML NEB HHN SCH (14:58)
[2024-06-08] MEDS: LORAZEPAM 2MG/ML INJ IV PRN (15:38)
[2024-06-08 16:00] VITALS: BP 158/64; PULSE 87; RESP 14
[2024-06-08] MEDS: FUROSEMIDE 40MG/4ML VIAL IVP SCH (17:30)
[2024-06-08 19:08] LABS: IRON 83 ug/dL (50-170)
[2024-06-08 19:10] LABS: CREATINE KINASE MB FRACTION 2.9 ng/mL (0.5-3.6)
[2024-06-08 19:11] LABS: CREATINE KINASE 60 IU/L (34-145); TOTAL IRON BINDING CAPACITY 250 ug/dl (250-425)
[2024-06-08 19:21] LABS: FERRITIN 283 ng/mL (10-291); FOLIC ACID (FOLATE) SERUM > 20.00 ng/mL (>5.38); VITAMIN B12 SERUM 669 pg/mL (211-911)
[2024-06-08 19:41] LABS: TROPONIN I HIGH SENSITIVITY 74 ng/L (3.0-34)
[2024-06-08 20:00] VITALS: BP 146/76; PULSE 76; RESP 18; TEMP 36.6696
[2024-06-08] MEDS: GUAIFENESIN 200MG/10ML SUGAR FREE UDC PO PRN (20:14)
[2024-06-08] MEDS: ATORVASTATIN CALCIUM 40MG TABLET PO SCH (20:15)
[2024-06-08] MEDS: AZITHROMYCIN 500MG/250ML 250 ML IV SCH (20:15)
[2024-06-08 21:56] LABS: POTASSIUM 5.3 mEq/L (3.5-5.1)
[2024-06-08 22:07] LABS: CREATINE KINASE MB FRACTION 2.8 ng/mL (0.5-3.6)
[2024-06-09] VITALS (7 sets, daily range): BP systolic 134–172; BP diastolic 66–140; PULSE 66–91; RESP 11–20; TEMP 36.50292–36.6696; O2SAT 15–99
[2024-06-09 07:17] LABS: CHLORIDE 112 mEq/L (98-107); SODIUM 142 mEq/L (136-145)
[2024-06-09 07:18] LABS: CALCIUM 9.4 mg/dL (8.7-10.4); CARBON DIOXIDE 17 mEq/L (21-32)
[2024-06-09 07:20] LABS: BASOPHILS % 0.2 % (0.0-2.0); HEMATOCRIT. 23.3 % (36.0-48.0); HEMOGLOBIN. 7.5 g/dL (12.0-16.0); LYMPHOCYTES % 19.8 % (20.0-50.0); MEAN CORPUSCULAR HEMOGLOBIN 31.6 pg (28.0-32.0); MEAN CORPUSCULAR HGB CONC 32.2 g/dL (31.0-37.0); MEAN CORPUSCULAR VOLUME 98.1 fL (81.0-99.0); MEAN PLATELET VOLUME 9.2 fl (7.4-10.4); MONOCYTES % 9.1 % (2.0-8.0); NEUTROPHILS % 70.9 % (40.0-76.0); PLATELET 202 x1000/uL (130-400); RED BLOOD CELL COUNT 2.38 mill/uL (4.2-5.4); RED CELL DISTRIBUTION WIDTH 15.9 % (11.6-14.6); WHITE BLOOD COUNT 4.8 x1000/uL (4.5-11.0)
[2024-06-09 07:23] LABS: CREATININE 4.1 mg/dL (0.6-1.0); GLUCOSE 134 mg/dL (70-105); TRIGLYCERIDE 35 mg/dL (0-150); UREA NITROGEN BLOOD 94 mg/dL (9-23)
[2024-06-09 07:24] LABS: LDL CHOLESTEROL 33 mg/dL (5-100)
[2024-06-09 07:25] LABS: CHOLESTEROL 97 mg/dL (<200); HDL CHOLESTEROL 50 mg/dL (>65); PHOSPHORUS 5.1 mg/dL (2.5-4.9); THYROID STIMULATING HORMONE 0.95 uIU/mL (0.55-4.78)
[2024-06-09 07:26] LABS: T4 FREE 1.07 ng/dL (0.89-1.76)
[2024-06-09] MEDS: SODIUM BICARBONATE 650MG TABLET PO SCH (09:39)
[2024-06-09 11:34] LABS: POTASSIUM 4.6 mEq/L (3.5-5.1)
[2024-06-09] MEDS: ACETAMINOPHEN 325MG TABLET PO PRN (15:08)
[2024-06-09 16:19] LABS: POTASSIUM 4.7 mEq/L (3.5-5.1)
[2024-06-09 16:26] LABS: CREATINE KINASE MB FRACTION 3.2 ng/mL (0.5-3.6)
[2024-06-09] MEDS: AZITHROMYCIN 500 MG TABLET PO SCH (21:17)
[2024-06-09 23:55] LABS: POTASSIUM 4.8 mEq/L (3.5-5.1)
[2024-06-10] VITALS (19 sets, daily range): BP systolic 134–193; BP diastolic 62–87; PULSE 72–91; RESP 13–22; TEMP 36.72516–37.00296; O2SAT 91–100
[2024-06-10 00:04] LABS: CREATINE KINASE MB FRACTION 3.2 ng/mL (0.5-3.6)
[2024-06-10] MEDS: CLONIDINE 0.1MG TABLET PO PRN (09:09)
[2024-06-10 09:50] LABS: CHLORIDE 111 mEq/L (98-107); SODIUM 139 mEq/L (136-145)
[2024-06-10 09:51] LABS: CALCIUM 9.3 mg/dL (8.7-10.4); CARBON DIOXIDE 17 mEq/L (21-32)
[2024-06-10 09:56] LABS: GLUCOSE 145 mg/dL (70-105)
[2024-06-10 09:57] LABS: CREATINE KINASE MB FRACTION 3.8 ng/mL (0.5-3.6)
[2024-06-10 09:58] LABS: CREATINE KINASE 44 IU/L (34-145); PHOSPHORUS 4.9 mg/dL (2.5-4.9)
[2024-06-10 10:11] LABS: PROTHROMBIN TIME 10.7 sec (9.6-11.0)
[2024-06-10 10:17] LABS: BASOPHILS % 0.8 % (0.0-2.0); EOSINOPHILS % 0.3 % (0.0-5.0); HEMATOCRIT. 25.7 % (36.0-48.0); HEMOGLOBIN. 8.3 g/dL (12.0-16.0); LYMPHOCYTES % 11.9 % (20.0-50.0); MEAN CORPUSCULAR HEMOGLOBIN 30.6 pg (28.0-32.0); MEAN CORPUSCULAR HGB CONC 32.1 g/dL (31.0-37.0); MEAN CORPUSCULAR VOLUME 95.5 fL (81.0-99.0); RED CELL DISTRIBUTION WIDTH 15.7 % (11.6-14.6)
[2024-06-10 10:19] LABS: UREA NITROGEN BLOOD 101 mg/dL (9-23)
[2024-06-10 10:21] LABS: TROPONIN I HIGH SENSITIVITY 78 ng/L (3.0-34)
[2024-06-10 10:23] LABS: DIFFERENTIAL COMMENT 1
[2024-06-10] MEDS: LORAZEPAM 2MG/ML INJ IV NR (10:43)
[2024-06-10] MEDS ORDERED: LIDOCAINE HCL 1% 10 MG/ML 10ML VIAL ONE (10:45)
[2024-06-10 11:48] LABS: ADD RBC MORPHOLOGY YES; MEAN PLATELET VOLUME 10.1 fl (7.4-10.4)
[2024-06-10 11:49] LABS: ANISOCYTOSIS 1+; PLATELET ESTIMATE NORMAL
[2024-06-10 11:51] LABS: PLATELET 283 x1000/uL (130-400)
[2024-06-10 12:45] LABS: HEPATITIS B SURFACE ANTIGEN NEGATIVE (Negative)
[2024-06-10 13:05] LABS: HEPATITIS A AB IGM NEGATIVE (Negative)
[2024-06-10 13:06] LABS: HEPATITIS B CORE AB IGM NEGATIVE (Negative)
[2024-06-10 13:07] LABS: HEPATITIS C AB NON REACTIVE (Neg) (Negative)
[2024-06-10] MEDS: HYDRALAZINE HCL 50MG TABLET PO SCH (13:43)
[2024-06-11] VITALS (10 sets, daily range): BP systolic 129–173; BP diastolic 57–66; PULSE 71–89; RESP 9–18; TEMP 36.50292–37; O2SAT 95–100
[2024-06-11 08:08] LABS: CHLORIDE 105 mEq/L (98-107); SODIUM 138 mEq/L (136-145)
[2024-06-11 08:09] LABS: CARBON DIOXIDE 24 mEq/L (21-32)
[2024-06-11 08:14] LABS: CREATININE 3.1 mg/dL (0.6-1.0); GLUCOSE 156 mg/dL (70-105); UREA NITROGEN BLOOD 72 mg/dL (9-23)
[2024-06-11 08:16] LABS: PHOSPHORUS 4.8 mg/dL (2.5-4.9)
[2024-06-11 08:18] LABS: BASOPHILS % 0.1 % (0.0-2.0); HEMATOCRIT. 26.4 % (36.0-48.0); HEMOGLOBIN. 8.5 g/dL (12.0-16.0); LYMPHOCYTES % 13.4 % (20.0-50.0); MEAN CORPUSCULAR HEMOGLOBIN 30.6 pg (28.0-32.0); MEAN CORPUSCULAR HGB CONC 32.3 g/dL (31.0-37.0); MEAN CORPUSCULAR VOLUME 94.7 fL (81.0-99.0); MEAN PLATELET VOLUME 9.6 fl (7.4-10.4); MONOCYTES % 5.8 % (2.0-8.0); NEUTROPHILS % 80.7 % (40.0-76.0); PLATELET 222 x1000/uL (130-400); RED BLOOD CELL COUNT 2.78 mill/uL (4.2-5.4); WHITE BLOOD COUNT 6.3 x1000/uL (4.5-11.0)
[2024-06-11] MEDS: FAMOTIDINE 20MG/2ML VIAL IV SCH (09:48)
[2024-06-12] VITALS (18 sets, daily range): BP systolic 126–167; BP diastolic 53–73; PULSE 76–101; RESP 13–18; TEMP 36.22512–37.1; O2SAT 94–100
[2024-06-12 07:51] LABS: CALCIUM 8.9 mg/dL (8.7-10.4)
[2024-06-12 07:53] LABS: BASOPHILS % 0.2 % (0.0-2.0); EOSINOPHILS % 0.2 % (0.0-5.0); HEMOGLOBIN. 9.5 g/dL (12.0-16.0); LYMPHOCYTES % 27.4 % (20.0-50.0); MEAN CORPUSCULAR HGB CONC 32.7 g/dL (31.0-37.0); MEAN PLATELET VOLUME 9.2 fl (7.4-10.4); MONOCYTES % 13.6 % (2.0-8.0); NEUTROPHILS % 58.6 % (40.0-76.0); PLATELET 276 x1000/uL (130-400); RED BLOOD CELL COUNT 3.06 mill/uL (4.2-5.4); RED CELL DISTRIBUTION WIDTH 15.4 % (11.6-14.6)
[2024-06-12 07:56] LABS: CREATININE 3.5 mg/dL (0.6-1.0)
[2024-06-13] VITALS (8 sets, daily range): BP systolic 120–144; BP diastolic 53–120; PULSE 74–97; RESP 15–21; TEMP 36.7–36.8; O2SAT 97–100
[2024-06-13] MEDS ORDERED: HYDR50TA39 PO (10:26)
== END 2024-06-13 15:30 | DRG 280 ==
LOC: ER 20:48 → 3WST 23:51 → EDBEDREQTM 23:59 → EDBEDREQ 23:59 → EDBEDREQSVC 06-08 01:06
PROVIDERS: ADMIT Hospitalist; ATTEND Hospitalist
PROC: 5A09357 Assistance with Respiratory Ventilation, Less than 24 Consecutive Hours, Continuous Positive Airway Pressure (ICD-10-PCS; principal; 2024-06-07)
PROC: 0JH63XZ Insertion of Tunneled Vascular Access Device into Chest Subcutaneous Tissue and Fascia, Percutaneous Approach (ICD-10-PCS; 2024-06-10)
PROC: 02HV33Z Insertion of Infusion Device into Superior Vena Cava, Percutaneous Approach (ICD-10-PCS; 2024-06-10)
PROC: B548ZZA Ultrasonography of Superior Vena Cava, Guidance (ICD-10-PCS; 2024-06-10)
PROC: B5181ZA Fluoroscopy of Superior Vena Cava using Low Osmolar Contrast, Guidance (ICD-10-PCS; 2024-06-10)
PROC: 5A1D70Z Performance of Urinary Filtration, Intermittent, Less than 6 Hours Per Day (ICD-10-PCS; 2024-06-10)
PROC: 5A1D70Z Performance of Urinary Filtration, Intermittent, Less than 6 Hours Per Day (ICD-10-PCS; 2024-06-12)
DX: I13.2 Hypertensive heart and chronic kidney disease with heart failure and with stage 5 chronic kidney disease, or end stage renal disease (principal); I50.43 Acute on chronic combined systolic (congestive) and diastolic (congestive) heart failure; I21.A1 Myocardial infarction type 2; J96.01 Acute respiratory failure with hypoxia; N18.6 End stage renal disease; J44.1 Chronic obstructive pulmonary disease with (acute) exacerbation; E87.20 Acidosis, unspecified; N17.9 Acute kidney failure, unspecified; N39.0 Urinary tract infection, site not specified; I69.354 Hemiplegia and hemiparesis following cerebral infarction affecting left non-dominant side; Z20.822 Contact with and (suspected) exposure to COVID-19; D64.9 Anemia, unspecified; E11.65 Type 2 diabetes mellitus with hyperglycemia; K21.9 Gastro-esophageal reflux disease without esophagitis; M32.9 Systemic lupus erythematosus, unspecified; E11.22 Type 2 diabetes mellitus with diabetic chronic kidney disease; E87.5 Hyperkalemia; E78.00 Pure hypercholesterolemia, unspecified; F41.9 Anxiety disorder, unspecified; Z78.1 Physical restraint status; Z79.4 Long term (current) use of insulin; Z79.82 Long term (current) use of aspirin; Z79.899 Other long term (current) drug therapy; Z99.2 Dependence on renal dialysis
CPT/HCPCS: 36415; 36558; 71045; 76937; 77001; 80048; 80053; 80061; 82550; 82553; 82607; 82728; 82746; 82962; 83036; 83540; 83550; 83605; 83735; 83880; 84100; 84132; 84145; 84439; 84443; 84484; 85025; 85379; 86705; 86706; 86709; 87340; 87426; 90935; 93005; 93306; 93970; 94003; 94640; 94660; 94664; 97162; 97166; 99291; A4606; A4663; A6261; C1750; C1887; J0360; J0456; J0610; J1642; J1815; J1940; J2003; J2060; J2470; J2919; J2920; J3490; J7060

== ENCOUNTER 2024-06-19 04:55 | Inpatient (IN) | payer MEDICARE, MEDICAID ==
[~2024-06-19] VITALS: Ht 152.4 cm; Wt 50.3 kg
[2024-06-19] VITALS (15 sets, daily range): BP systolic 119–135; BP diastolic 58–75; PULSE 73–123; RESP 16–20; TEMP 36.6696–36.72516; O2SAT 92–100
[~2024-06-19 04:55] MED LIST changes: +HYDR50TA39 PO; -HYDR50TA40 MT
[2024-06-19] MEDS ORDERED: MIDAZOLAM HCL 100 MG in DEXT 5% WATER 80 ML IV ONE (05:00)
[2024-06-19] MEDS: ETOMIDATE 2MG/ML 10ML VIAL IV ONE (05:00)
[2024-06-19] MEDS: ROCURONIUM BROMIDE 10MG/ML VIAL 5ML IV ONE (05:00)
[2024-06-19] MEDS: PROPOFOL 10MG/ML 100ML 100 ML IV ONE (05:00)
[2024-06-19] MEDS ORDERED: DOCUSATE SODIUM 100MG CAPSULE NG PRN (05:45)
[2024-06-19] MEDS ORDERED: IPRATROPIUM/ALBUTEROL 0.5-3(2.5)MG/3ML NEB HHN PRN (05:45)
[2024-06-19] MEDS ORDERED: ACETAMINOPHEN 650MG/20.3ML UDC GT PRN (05:45)
[2024-06-19] MEDS ORDERED: ONDANSETRON HCL 4MG/2ML INJ IV PRN (05:45)
[2024-06-19 06:22] LABS: HEMATOCRIT. 24.5 % (36.0-48.0); HEMOGLOBIN. 7.8 g/dL (12.0-16.0); MEAN CORPUSCULAR HEMOGLOBIN 30.9 pg (28.0-32.0); MEAN CORPUSCULAR HGB CONC 31.9 g/dL (31.0-37.0); MEAN CORPUSCULAR VOLUME 96.7 fL (81.0-99.0); MEAN PLATELET VOLUME 8.5 fl (7.4-10.4); PLATELET 217 x1000/uL (130-400); RED BLOOD CELL COUNT 2.54 mill/uL (4.2-5.4); RED CELL DISTRIBUTION WIDTH 15.3 % (11.6-14.6); WHITE BLOOD COUNT 20.1 x1000/uL (4.5-11.0)
[2024-06-19] MEDS: NICARDIPINE 40MG/200ML PREMIX 200 ML IV STA (06:26)
[2024-06-19 06:28] LABS: CHLORIDE 108 mEq/L (98-107)
[2024-06-19 06:29] LABS: CARBON DIOXIDE 21 mEq/L (21-32); POTASSIUM 5.4 mEq/L (3.5-5.1); SODIUM 140 mEq/L (136-145)
[2024-06-19 06:30] LABS: CALCIUM 8.5 mg/dL (8.7-10.4); DIFFERENTIAL COMMENT 1
[2024-06-19 06:33] LABS: PROTHROMBIN TIME 10.9 sec (9.6-11.0)
[2024-06-19 06:34] LABS: BG CARBOXYHEMOGLOBIN 0.6 % (0.5-1.5); BG DEOXYHEMOGLOBIN 0.2 % (0.0-5.0); BG FRACTION INSPIRED OXYGEN 100; BG HCO3 ACT 20.7 mmol/L (21.0-28.0); BG METHEMOGLOBIN 0.3 % (0.5-1.5); BG OXYGEN SATURATION 99.8 % (94.0-98.0); BG OXYHEMOGLOBIN 98.9 % (94.0-98.0); BG PH 7.321 (7.350-7.450); BG PO2 401.4 mmHg (83.0-108.0); BG TOTAL HEMOGLOBIN 8.4 g/dL (12.0-16.0); BG VENT MODE VENT - AC
[2024-06-19 06:34] LABS: CREATININE 4.1 mg/dL (0.6-1.0); GLUCOSE 175 mg/dL (70-105)
[2024-06-19 06:35] LABS: UREA NITROGEN BLOOD 83 mg/dL (9-23)
[2024-06-19 06:37] LABS: PHOSPHORUS 6.6 mg/dL (2.5-4.9)
[2024-06-19 06:38] LABS: TROPONIN I HIGH SENSITIVITY 112 ng/L (3.0-34)
[2024-06-19] MEDS: SODIUM ZIRCONIUM CYCLOSILICATE 10GM/PACKET NG NR (06:45)
[2024-06-19] MEDS: IPRATROPIUM/ALBUTEROL 0.5-3(2.5)MG/3ML NEB HHN NR (06:45)
[2024-06-19] MEDS: CEFTRIAXONE 1GM/50ML 50 ML IV SCH (07:00)
[2024-06-19 07:45] LABS: PLATELET ESTIMATE NORMAL
[2024-06-19] MEDS: INSULIN LISPRO 100 UNITS/ML SUBCUT SCH (08:20)
[2024-06-19] MEDS: MIDAZOLAM 100MG/100ML PMX 100 ML IV PRN (08:56)
[2024-06-19] MEDS: BLOOD SUGAR DIAGNOSTIC STRIP TEST SCH (09:02)
[2024-06-19 09:10] LABS: HEPATITIS B SURFACE ANTIGEN NEGATIVE (Negative)
[2024-06-19] MEDS: IPRATROPIUM/ALBUTEROL 0.5-3(2.5)MG/3ML NEB HHN SCH (09:18)
[2024-06-19] MEDS: PANTOPRAZOLE SODIUM 40 MG/VIAL IV SCH (09:27)
[2024-06-19 09:30] LABS: HEPATITIS A AB IGM NEGATIVE (Negative)
[2024-06-19 09:31] LABS: HEPATITIS B CORE AB IGM NEGATIVE (Negative); HEPATITIS C AB NON REACTIVE (Neg) (Negative)
[2024-06-19] MEDS: AZITHROMYCIN 500MG/250ML 250 ML IV SCH (09:31)
[2024-06-19 09:42] LABS: CREATINE KINASE MB FRACTION 7.1 ng/mL (0.5-3.6)
[2024-06-19] MEDS: VANCOMYCIN 1GM/200ML PMX (BAXTER) IV NR (10:39)
[2024-06-19] MEDS: PIPERACILLIN/TAZO 3.375G/50ML IV SCH (10:39)
[2024-06-19 13:17] LABS: CREATINE KINASE MB FRACTION 8.6 ng/mL (0.5-3.6)
[2024-06-19] MEDS ORDERED: FENTANYL 2500MCG/250ML PMX 250 ML IV ONE (20:15)
[2024-06-19 20:40] LABS: CREATINE KINASE MB FRACTION 5.6 ng/mL (0.5-3.6)
[2024-06-19] MEDS: ATORVASTATIN CALCIUM 40MG TABLET NG SCH (21:00)
[2024-06-19] MEDS: FENTANYL CITRATE/PF 1,000 MCG in DEXT 5% WATER 80 ML IV PRN (21:43)
[2024-06-19] MEDS: DEXTROSE 50% WATER 50ML SYRINGE IV PRN (22:41)
[2024-06-20] VITALS (65 sets, daily range): BP systolic 107–202; BP diastolic 37–180; PULSE 70–102; RESP 10–21; TEMP 36.6696–37.11408; O2SAT 91–100
[2024-06-20 00:46] LABS: CLARITY URINE CLEAR (CLEAR); COLOR URINE YELLOW (YELLOW); GLUCOSE URINE NEGATIVE (NEGATIVE); KETONES URINE NEGATIVE (NEGATIVE); LEUKOCYTE ESTERASE URINE TRACE (NEGATIVE); NITRITE URINE NEGATIVE (NEGATIVE); OCCULT BLOOD URINE NEGATIVE (NEGATIVE); PH URINE 7.5 (4.5-8.0); PROTEIN URINE 3+ (NEGATIVE); SPECIFIC GRAVITY URINE 1.015 (1.005-1.030); UROBILINOGEN URINE 0.2 E.U./dL (0.2-1.0)
[2024-06-20 00:57] LABS: *AMPHETAMINES SCREEN URINE NEGATIVE (NEGATIVE); *BARBITURATES SCREEN URINE NEGATIVE (NEGATIVE); *BENZODIAZEPINES SCREEN URINE PRESUMPTIVE POSITIVE (NEGATIVE); *COCAINE SCREEN URINE NEGATIVE (NEGATIVE); CANNABINOID URINE SCREEN NEGATIVE (NEGATIVE); ECSTASY MDMA SCREEN URINE NEGATIVE (NEGATIVE); METHADONE URINE SCREEN NEGATIVE (NEGATIVE); OPIATES URINE SCREEN NEGATIVE (NEGATIVE); PHENCYCLIDINE URINE SCREEN NEGATIVE (NEGATIVE)
[2024-06-20 01:17] LABS: SQUAMOUS EPITHELIAL CELL URINE 2+ /lpf (RARE/1+)
[2024-06-20 01:19] LABS: BACTERIA URINE TRACE
[2024-06-20] MEDS ORDERED: MIDAZOLAM 100MG/100ML PMX 100 ML IV PRN ×2 (04:30→04:45)
[2024-06-20] MEDS: MIDAZOLAM 100MG/100ML PMX 100 ML IV PRN (05:05)
[2024-06-20] MEDS ORDERED: AZITHROMYCIN 500 MG in SODIUM CHLORIDE 0.45% 250 ML IV SCH (07:00)
[2024-06-20 08:45] LABS: BG BASE EXCESS 0.1 mmol/L (-2.0-3.0); BG CARBOXYHEMOGLOBIN 1.2 % (0.5-1.5); BG DEOXYHEMOGLOBIN 1.5 % (0.0-5.0); BG FRACTION INSPIRED OXYGEN 30; BG HCO3 ACT 22.2 mmol/L (21.0-28.0); BG METHEMOGLOBIN 0.3 % (0.5-1.5); BG OXYGEN SATURATION 98.5 % (94.0-98.0); BG PCO2 25.1 mmHg (32.0-45.0); BG PH 7.564 (7.350-7.450); BG PO2 117.7 mmHg (83.0-108.0); BG SAMPLE SITE RIGHT RADIAL; BG TOTAL HEMOGLOBIN 6.4 g/dL (12.0-16.0); BG TOTAL RESPIRATORY RATE 19 b/min; BG VENT MODE VENT - AC
[2024-06-20] MEDS ORDERED: PIPERACILLIN/TAZO 3.375G/100ML 100 ML IV SCH (09:00)
[2024-06-20] MEDS ORDERED: VANCOMYCIN 500MG/100ML IV NR (10:00)
[2024-06-20] MEDS ORDERED: LIDOCAINE HCL 1% 10 MG/ML 10ML VIAL ONE (11:15)
[2024-06-20] MEDS: DEXTROSE 10% WATER 500 ML IV ONE (12:00)
[2024-06-20] MEDS: LANTHANUM CARBONATE 500MG CHEW TABLET PO SCH (12:44)
[2024-06-20] MEDS: HYDRALAZINE 20MG/ML VIAL IV PRN (12:44)
[2024-06-20 13:41] LABS: POTASSIUM 3.6 mEq/L (3.5-5.1)
[2024-06-20 13:43] LABS: CALCIUM 8.5 mg/dL (8.7-10.4)
[2024-06-20 13:47] LABS: CREATININE 3.3 mg/dL (0.6-1.0)
[2024-06-20 14:13] LABS: BASOPHILS % 0.6 % (0.0-2.0); DIFFERENTIAL COMMENT 0; LYMPHOCYTES % 14.8 % (20.0-50.0); MEAN CORPUSCULAR HGB CONC 32.7 g/dL (31.0-37.0); MEAN PLATELET VOLUME 8.9 fl (7.4-10.4); NEUTROPHILS % 65.6 % (40.0-76.0); PLATELET 159 x1000/uL (130-400); RED BLOOD CELL COUNT 2.12 mill/uL (4.2-5.4); RED CELL DISTRIBUTION WIDTH 15.2 % (11.6-14.6); WHITE BLOOD COUNT 6.1 x1000/uL (4.5-11.0)
[2024-06-20 14:48] LABS: HEMATOCRIT. 20.2 % (36.0-48.0); HEMOGLOBIN. 6.6 g/dL (12.0-16.0)
[2024-06-20] MEDS ORDERED: HYDR25TA78 PO (15:32)
[2024-06-20] MEDS ORDERED: CARV12.545 (15:32)
[2024-06-20] MEDS: AZITHROMYCIN 500 MG in SODIUM CHLORIDE 0.9% 250 ML IV SCH (17:57)
[2024-06-20] MEDS: PIPERACILLIN/TAZO 3.375G/50ML IV SCH (21:24)
[2024-06-21] VITALS (100 sets, daily range): BP systolic 93–200; BP diastolic 46–114; PULSE 70–140; RESP 12–31; TEMP 36.33624–37.2; O2SAT 86–100
[2024-06-21 06:02] LABS: BASOPHILS % 0.5 % (0.0-2.0); EOSINOPHILS % 6.3 % (0.0-5.0); HEMATOCRIT. 25.4 % (36.0-48.0); HEMOGLOBIN. 8.6 g/dL (12.0-16.0); LYMPHOCYTES % 7.6 % (20.0-50.0); MEAN CORPUSCULAR HGB CONC 33.9 g/dL (31.0-37.0); MEAN CORPUSCULAR VOLUME 94.4 fL (81.0-99.0); MEAN PLATELET VOLUME 8.8 fl (7.4-10.4); MONOCYTES % 8.7 % (2.0-8.0); NEUTROPHILS % 76.9 % (40.0-76.0); PLATELET 150 x1000/uL (130-400); POTASSIUM 3.9 mEq/L (3.5-5.1); RED BLOOD CELL COUNT 2.69 mill/uL (4.2-5.4); RED CELL DISTRIBUTION WIDTH 15.6 % (11.6-14.6); WHITE BLOOD COUNT 8.5 x1000/uL (4.5-11.0)
[2024-06-21 06:08] LABS: CREATININE 3.6 mg/dL (0.6-1.0)
[2024-06-21 10:40] LABS: BG BASE EXCESS -2.7 mmol/L (-2.0-3.0); BG CARBOXYHEMOGLOBIN 1.4 % (0.5-1.5); BG DEOXYHEMOGLOBIN 6.9 % (0.0-5.0); BG FRACTION INSPIRED OXYGEN 30; BG HCO3 ACT 20.5 mmol/L (21.0-28.0); BG METHEMOGLOBIN 0.3 % (0.5-1.5); BG OXYHEMOGLOBIN 91.4 % (94.0-98.0); BG PCO2 29.4 mmHg (32.0-45.0); BG PH 7.461 (7.350-7.450); BG PO2 64.8 mmHg (83.0-108.0); BG SAMPLE SITE RIGHT BRACHIAL; BG TOTAL HEMOGLOBIN 8.7 g/dL (12.0-16.0); BG TOTAL RESPIRATORY RATE 17 b/min; BG VENT MODE VENT - AC
[2024-06-21] MEDS: CLONIDINE 0.1MG TABLET NG PRN (15:35)
[2024-06-21] MEDS ORDERED: VANCOMYCIN 750MG PREMIX 150 ML IV NR (18:00)
[2024-06-22] VITALS (90 sets, daily range): BP systolic 77–173; BP diastolic 41–89; PULSE 78–110; RESP 11–27; TEMP 36.7–38.3; O2SAT 99–100
[2024-06-22 05:56] LABS: POTASSIUM 3.6 mEq/L (3.5-5.1)
[2024-06-22 05:57] LABS: CALCIUM 8.5 mg/dL (8.7-10.4)
[2024-06-22 06:02] LABS: CREATININE 3.2 mg/dL (0.6-1.0)
[2024-06-22 09:30] LABS: HEMATOCRIT 24.6 % (36.0-48.0); HEMOGLOBIN 8.1 g/dL (12.0-16.0); MEAN CORPUSCULAR HEMOGLOBIN 31.9 pg (28.0-32.0); MEAN CORPUSCULAR HGB CONC 32.8 g/dL (31.0-37.0); MEAN CORPUSCULAR VOLUME 97.2 fL (81.0-99.0); PLATELET 136 x1000/uL (130-400); RED BLOOD CELL COUNT 2.53 mill/uL (4.2-5.4); RED CELL DISTRIBUTION WIDTH 15.7 % (11.6-14.6); WHITE BLOOD COUNT 8.3 x1000/uL (4.5-11.0)
[2024-06-22 09:30] LABS: BG BASE EXCESS -3.4 mmol/L (-2.0-3.0); BG CARBOXYHEMOGLOBIN 1.1 % (0.5-1.5); BG FRACTION INSPIRED OXYGEN 50; BG HCO3 ACT 21.7 mmol/L (21.0-28.0); BG METHEMOGLOBIN 0.9 % (0.5-1.5); BG PCO2 39.2 mmHg (32.0-45.0); BG PH 7.361 (7.350-7.450); BG PO2 165.2 mmHg (83.0-108.0); BG SAMPLE SITE RIGHT BRACHIAL; BG TOTAL HEMOGLOBIN 7.8 g/dL (12.0-16.0); BG VENT MODE VENT - AC
[2024-06-22] MEDS: VANCOMYCIN 750MG PREMIX 150 ML IV NR (12:08)
[2024-06-23] VITALS (55 sets, daily range): BP systolic 100–195; BP diastolic 50–93; PULSE 84–117; RESP 11–33; TEMP 36.7–37.2; O2SAT 98–100
[2024-06-23] MEDS: ACETAMINOPHEN 650MG/20.3ML UDC GT PRN (02:41)
[2024-06-23 05:45] LABS: HEMATOCRIT 23.9 % (36.0-48.0); MEAN CORPUSCULAR HEMOGLOBIN 32.5 pg (28.0-32.0); MEAN CORPUSCULAR HGB CONC 33.3 g/dL (31.0-37.0); MEAN CORPUSCULAR VOLUME 97.5 fL (81.0-99.0); PLATELET 107 x1000/uL (130-400); RED BLOOD CELL COUNT 2.45 mill/uL (4.2-5.4); RED CELL DISTRIBUTION WIDTH 14.8 % (11.6-14.6); WHITE BLOOD COUNT 6.5 x1000/uL (4.5-11.0)
[2024-06-23 06:22] LABS: CARBON DIOXIDE 24 mEq/L (21-32); CHLORIDE 105 mEq/L (98-107); POTASSIUM 3.7 mEq/L (3.5-5.1); SODIUM 139 mEq/L (136-145)
[2024-06-23 09:44] LABS: BG BASE EXCESS -3.4 mmol/L (-2.0-3.0); BG CARBOXYHEMOGLOBIN 1.3 % (0.5-1.5); BG DEOXYHEMOGLOBIN 9.1 % (0.0-5.0); BG FRACTION INSPIRED OXYGEN 40; BG HCO3 ACT 22.3 mmol/L (21.0-28.0); BG METHEMOGLOBIN 0.3 % (0.5-1.5); BG OXYGEN SATURATION 90.8 % (94.0-98.0); BG OXYHEMOGLOBIN 89.3 % (94.0-98.0); BG PCO2 44.1 mmHg (32.0-45.0); BG PH 7.322 (7.350-7.450); BG PO2 63.1 mmHg (83.0-108.0); BG SAMPLE SITE RIGHT RADIAL; BG TOTAL HEMOGLOBIN 5.4 g/dL (12.0-16.0); BG VENT MODE VENT - AC
[2024-06-23 13:29] LABS: BG BASE EXCESS -3.7 mmol/L (-2.0-3.0); BG CARBOXYHEMOGLOBIN 0.9 % (0.5-1.5); BG DEOXYHEMOGLOBIN 0.9 % (0.0-5.0); BG FRACTION INSPIRED OXYGEN 40; BG HCO3 ACT 21.5 mmol/L (21.0-28.0); BG METHEMOGLOBIN 0.1 % (0.5-1.5); BG OXYGEN SATURATION 99.1 % (94.0-98.0); BG OXYHEMOGLOBIN 98.1 % (94.0-98.0); BG PCO2 39.7 mmHg (32.0-45.0); BG PH 7.352 (7.350-7.450); BG PO2 161.5 mmHg (83.0-108.0); BG SAMPLE SITE RIGHT BRACHIAL; BG TOTAL HEMOGLOBIN 8.6 g/dL (12.0-16.0); BG VENT MODE VENT - CPAP
[2024-06-23] MEDS: AMLODIPINE 5MG TABLET PO SCH (14:56)
[2024-06-23] MEDS ORDERED: DEXMEDETOMIDINE 400 MCG/100 ML 100 ML IV PRN (15:15)
[2024-06-23] MEDS: HYDRALAZINE HCL 10MG TABLET PO SCH (15:35)
[2024-06-24] VITALS (72 sets, daily range): BP systolic 101–180; BP diastolic 49–113; PULSE 84–130; RESP 12–36; TEMP 36.16956–37.2; O2SAT 91–100
[2024-06-24 05:53] LABS: BASOPHILS % 0.2 % (0.0-2.0); EOSINOPHILS % 7.1 % (0.0-5.0); HEMATOCRIT. 22.2 % (36.0-48.0); HEMOGLOBIN. 7.6 g/dL (12.0-16.0); LYMPHOCYTES % 10.3 % (20.0-50.0); MEAN CORPUSCULAR HEMOGLOBIN 31.8 pg (28.0-32.0); MEAN CORPUSCULAR VOLUME 93.6 fL (81.0-99.0); MEAN PLATELET VOLUME 9.1 fl (7.4-10.4); MONOCYTES % 10.5 % (2.0-8.0); NEUTROPHILS % 71.9 % (40.0-76.0); PLATELET 113 x1000/uL (130-400); RED BLOOD CELL COUNT 2.38 mill/uL (4.2-5.4); RED CELL DISTRIBUTION WIDTH 14.2 % (11.6-14.6); WHITE BLOOD COUNT 6.4 x1000/uL (4.5-11.0)
[2024-06-24 06:05] LABS: POTASSIUM 3.6 mEq/L (3.5-5.1)
[2024-06-24 06:07] LABS: CALCIUM 8.4 mg/dL (8.7-10.4)
[2024-06-24] MEDS: ASPIRIN 81MG TABLET PO SCH (09:02)
[2024-06-24 11:06] LABS: BG BASE EXCESS -6.5 mmol/L (-2.0-3.0); BG CARBOXYHEMOGLOBIN 0.8 % (0.5-1.5); BG DEOXYHEMOGLOBIN 0.6 % (0.0-5.0); BG FRACTION INSPIRED OXYGEN 40; BG HCO3 ACT 17.9 mmol/L (21.0-28.0); BG OXYGEN SATURATION 99.4 % (94.0-98.0); BG OXYHEMOGLOBIN 98.6 % (94.0-98.0); BG PCO2 31.1 mmHg (32.0-45.0); BG PH 7.378 (7.350-7.450); BG PO2 179.3 mmHg (83.0-108.0); BG SAMPLE SITE RIGHT RADIAL; BG TOTAL HEMOGLOBIN 7.8 g/dL (12.0-16.0); BG VENT MODE VENT - CPAP
[2024-06-24] MEDS: VANCOMYCIN 500MG PREMIX 100 ML IV SCH (20:52)
[2024-06-25] VITALS (41 sets, daily range): BP systolic 116–174; BP diastolic 61–117; PULSE 103–123; RESP 13–26; TEMP 36.7–37.2; O2SAT 96–100
[2024-06-25] MEDS: HYDROXYZINE 25MG TABLET PO NR (00:34)
[2024-06-25] MEDS: MAGNESIUM/ALUMINUM HYDROXIDE/SIMETHICONE 30ML UDC PO PRN (00:35)
[2024-06-25 07:24] LABS: POTASSIUM 2.9 mEq/L (3.5-5.1)
[2024-06-25 07:25] LABS: CALCIUM 8.9 mg/dL (8.7-10.4)
[2024-06-25 07:33] LABS: BASOPHILS % 0.2 % (0.0-2.0); EOSINOPHILS % 4.3 % (0.0-5.0); HEMATOCRIT. 23.9 % (36.0-48.0); LYMPHOCYTES % 14.4 % (20.0-50.0); MEAN CORPUSCULAR HEMOGLOBIN 31.2 pg (28.0-32.0); MEAN CORPUSCULAR HGB CONC 33.5 g/dL (31.0-37.0); MEAN CORPUSCULAR VOLUME 92.9 fL (81.0-99.0); MEAN PLATELET VOLUME 9.1 fl (7.4-10.4); MONOCYTES % 13.1 % (2.0-8.0); PLATELET 143 x1000/uL (130-400); RED BLOOD CELL COUNT 2.57 mill/uL (4.2-5.4); RED CELL DISTRIBUTION WIDTH 14.1 % (11.6-14.6); WHITE BLOOD COUNT 8.1 x1000/uL (4.5-11.0)
[2024-06-25 07:52] LABS: CREATININE 3.3 mg/dL (0.6-1.0)
[2024-06-25] MEDS: POTASSIUM CHLORIDE 20MEQ TABLET SR PO NR (10:04)
[2024-06-26] VITALS (15 sets, daily range): BP systolic 135–167; BP diastolic 59–90; PULSE 69–113; RESP 16–20; TEMP 36.2–36.8; O2SAT 96–100
[2024-06-27] VITALS: BP 146/74; PULSE 89; RESP 18; TEMP 36.7; O2SAT 100
[2024-06-27 04:00] VITALS: BP 153/71; PULSE 98; RESP 19; TEMP 36.5; O2SAT 98
[2024-06-27 06:24] LABS: HEMATOCRIT 22.8 % (36.0-48.0); HEMOGLOBIN 7.7 g/dL (12.0-16.0); MEAN CORPUSCULAR HEMOGLOBIN 31.6 pg (28.0-32.0); MEAN CORPUSCULAR HGB CONC 33.8 g/dL (31.0-37.0); MEAN CORPUSCULAR VOLUME 93.3 fL (81.0-99.0); PLATELET 165 x1000/uL (130-400); RED BLOOD CELL COUNT 2.44 mill/uL (4.2-5.4); RED CELL DISTRIBUTION WIDTH 14.2 % (11.6-14.6); WHITE BLOOD COUNT 7.4 x1000/uL (4.5-11.0)
[2024-06-27 06:43] LABS: POTASSIUM 3.5 mEq/L (3.5-5.1)
[2024-06-27 06:44] LABS: CALCIUM 9.3 mg/dL (8.7-10.4)
[2024-06-27 06:49] LABS: CREATININE 4.1 mg/dL (0.6-1.0)
[2024-06-27 08:00] VITALS: BP 144/64; PULSE 109; RESP 18; TEMP 36.6; O2SAT 96
[2024-06-27 12:00] VITALS: BP 149/72; PULSE 95; RESP 16; TEMP 36.7; O2SAT 97
[2024-06-27 16:00] VITALS: BP 153/67; PULSE 95; RESP 19; TEMP 37.1; O2SAT 96
[2024-06-27 20:00] VITALS: BP 148/73; PULSE 105; RESP 20; TEMP 36.4; O2SAT 97
[2024-06-28] VITALS (13 sets, daily range): BP systolic 126–172; BP diastolic 53–75; PULSE 82–100; RESP 16–18; TEMP 36.3–36.72516; O2SAT 96–99
== END 2024-06-28 16:00 | DRG 870 ==
LOC: ER 04:55 → EDBEDREQ 05:20 → EDBEDREQTM 05:20 → MICUSO 07:29 → EDBEDREQTM 07:36 → MICUSO 06-20 10:32 → 6WST 06-25 17:51
PROVIDERS: ADMIT Hospitalist; ATTEND Hospitalist
PROC: 5A1955Z Respiratory Ventilation, Greater than 96 Consecutive Hours (ICD-10-PCS; principal; 2024-06-19)
PROC: 0BH17EZ Insertion of Endotracheal Airway into Trachea, Via Natural or Artificial Opening (ICD-10-PCS; 2024-06-19)
PROC: 5A09357 Assistance with Respiratory Ventilation, Less than 24 Consecutive Hours, Continuous Positive Airway Pressure (ICD-10-PCS; 2024-06-19)
PROC: 5A1D70Z Performance of Urinary Filtration, Intermittent, Less than 6 Hours Per Day (ICD-10-PCS; 2024-06-19)
PROC: 30233N1 Transfusion of Nonautologous Red Blood Cells into Peripheral Vein, Percutaneous Approach (ICD-10-PCS; 2024-06-20)
PROC: 02HV33Z Insertion of Infusion Device into Superior Vena Cava, Percutaneous Approach (ICD-10-PCS; 2024-06-20)
PROC: B548ZZA Ultrasonography of Superior Vena Cava, Guidance (ICD-10-PCS; 2024-06-20)
PROC: 5A1D70Z Performance of Urinary Filtration, Intermittent, Less than 6 Hours Per Day (ICD-10-PCS; 2024-06-21)
PROC: 5A1D70Z Performance of Urinary Filtration, Intermittent, Less than 6 Hours Per Day (ICD-10-PCS; 2024-06-23)
PROC: 5A1D70Z Performance of Urinary Filtration, Intermittent, Less than 6 Hours Per Day (ICD-10-PCS; 2024-06-26)
PROC: 5A1D70Z Performance of Urinary Filtration, Intermittent, Less than 6 Hours Per Day (ICD-10-PCS; 2024-06-28)
DX: A41.9 Sepsis, unspecified organism (principal); G93.41 Metabolic encephalopathy; I21.A1 Myocardial infarction type 2; J96.01 Acute respiratory failure with hypoxia; N18.6 End stage renal disease; J18.9 Pneumonia, unspecified organism; I50.43 Acute on chronic combined systolic (congestive) and diastolic (congestive) heart failure; I13.2 Hypertensive heart and chronic kidney disease with heart failure and with stage 5 chronic kidney disease, or end stage renal disease; I67.4 Hypertensive encephalopathy; I16.1 Hypertensive emergency; I69.354 Hemiplegia and hemiparesis following cerebral infarction affecting left non-dominant side; N39.0 Urinary tract infection, site not specified; E87.4 Mixed disorder of acid-base balance; E87.5 Hyperkalemia; D63.8 Anemia in other chronic diseases classified elsewhere; E11.22 Type 2 diabetes mellitus with diabetic chronic kidney disease; K21.9 Gastro-esophageal reflux disease without esophagitis; E11.649 Type 2 diabetes mellitus with hypoglycemia without coma; E11.65 Type 2 diabetes mellitus with hyperglycemia; M32.9 Systemic lupus erythematosus, unspecified; E78.00 Pure hypercholesterolemia, unspecified; Z99.2 Dependence on renal dialysis; Z79.82 Long term (current) use of aspirin; Z79.899 Other long term (current) drug therapy
CPT/HCPCS: 31500; 36415; 36573; 36600; 71045; 80048; 80051; 80202; 80305; 81003; 82375; 82550; 82553; 82805; 82962; 83605; 83735; 83880; 84100; 84145; 84443; 84484; 85025; 85027; 86705; 86709; 86850; 86900; 86920; 87070; 87340; 90935; 92610; 93005; 93970; 94002; 94003; 94070; 94640; 94664; 97162; 97166; 98960; 99291; A4606; C1725; J0360; J0456; J0696; J2003; J2250; J2470; J2543; J2704; J3010; J3370; J3490; J7050; J7060; P9016